=== PATIENT | female | born 1960 ===

== ENCOUNTER 2018-12-03 16:31 | Emergency (ER) | payer OTHER ==
[2018-12-03] MEDS ORDERED: ULTRAM50 MG PO (18:35)
== END 2018-12-03 18:50 | disposition home or self-care (01) ==
LOC: ED 16:31
DX: S86.912A Strain of unspecified muscle(s) and tendon(s) at lower leg level, left leg, initial encounter (principal); Z88.0 Allergy status to penicillin; Z88.6 Allergy status to analgesic agent; X50.1XXA Overexertion from prolonged static or awkward postures, initial encounter; Y93.89 Activity, other specified; Y92.89 Other specified places as the place of occurrence of the external cause; Y99.0 Civilian activity done for income or pay